=== PATIENT | female | born 1985 | race Caucasian/White ===

== ENCOUNTER 2022-10-20 08:48 | Outpatient (REF) | payer BC, SELFPAY ==
--- NOTE | ~2022-10-20 | MM_ITS ---
EXAMINATION: MM DIAGNOSTIC DIGITAL BREAST TOMOSYNTHESIS, BILATERAL US DIAGNOSTIC ULTRASOUND BREAST, LEFT CLINICAL INFORMATION: 37-year-old with 2 week palpable area lateral left breast jelly salgado size. No prior breast imaging. No known family history breast cancer. The lifetime risk of breast cancer based on the Tyrer-Cuzick Model is 13%. COMPARISON: None (current study represents initial baseline exam). TECHNIQUE: Digital breast tomosynthesis is performed in both the craniocaudal and mediolateral oblique views along with computer-aided detection (CAD). Synthesized 2D images are generated from the tomosynthesis. Ultrasound left breast is targeted to the area of clinical concern using grayscale imaging and color Doppler without and with harmonics. Patient is able to point to area of concern at time of imaging. FINDINGS: The breasts are heterogeneously dense, which may obscure small masses (ACR BI-RADS breast composition Category c). There are no significant masses, abnormal calcifications, or other abnormalities. The axilla and skin contours are unremarkable. Skin contours are smooth. The axilla are unremarkable. No mammographic correlate for patient's symptoms. Ultrasound demonstrates no cystic or solid mass, architectural abnormality, or focal duct ectasia. No skin thickening or edema tracking in soft tissue planes. Results are discussed with the patient at time of visit. MM/MM tomosynthesis diagnostic BI IMPRESSION: -No mammographic evidence of malignancy. -Unremarkable left breast ultrasound. -No imaging correlate for patient's palpable concern. ASSESSMENT: BI-RADS 1: Negative RECOMMENDATION: 1. Patient should be managed based on the clinical impression. If clinically indicated, further evaluation may be considered with surgical consult. Decision to proceed with biopsy should be based on clinical grounds and degree of clinical concern. 2. Otherwise, routine annual screening mammography. This patient's information was entered into a reminder system with a target due date for their next mammogram.
== END 2022-10-20 08:49 | disposition home or self-care (01) ==
LOC: HO.MAMMO 08:48
PROVIDERS: PCP Hospitalist; Visit Provider Nurse Practitioner Primary Care
DX: N63.25 Unspecified lump in the left breast, overlapping quadrants (principal)
CPT/HCPCS: 76642; 77062; 77066

== ENCOUNTER 2023-09-16 09:09 | Outpatient (AMB) | payer BC, SELFPAY ==
[2023-09-16 09:12] VITALS: BP 96/58; PULSE 68; RESP 13; TEMP 36.6; O2SAT 99; BMI 21.8
--- NOTE | 2023-09-16 09:12 | MHC.PC.OV ---
Vital Signs 09/16/23 09:12 Height 5 ft 4 in Weight 127 lb BMI 21.8 BP 96/58 L Blood Pressure Location Rt brachial Position Sitting Respiration 13 Pulse 68 Pulse Source Pulse Oximeter Temp 97.8 F Temp Source Oral Pulse Oximetry (%) 99 Oxygen Delivery Method Room Air Intake Visit Reasons: New patient-Requesting physical exam Intake Note: Patient is here to establish care and would like to request labs for routine bloodwork as she has not had it done in several years. 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 She notes that the last time she was evaluated by her former PCP and had blood work was over 5 years ago She reports h/o anxiety and depression with h/o psychotropic medications and psychotherapy. She notes that she has not been on psychotropic medications or had psychotherapy for the past 7 years. She notes that her symptoms are currently controlled without medications and psychotherapy. She denies acute symptoms. She notes that she is followed by [facility] in [facility]. Her last pap smear test was in 10/2022: normal [facility] Medical History (Updated 09/16/23 @ 10:17 by Earl Kenny CNP) Plantar fasciitis, bilateral Migraines Depression Anxiety Irritable bowel syndrome (IBS) Asthma Surgical History (Updated 09/16/23 @ 09:35 by Noemy Barrios CMA) History of appendectomy History of foot surgery History of nasal septoplasty Family History (Updated 09/16/23 @ 09:31 by Noemy Barrios CMA) Mother Hypertension Father Stomach cancer Alcohol abuse Maternal Grandmother Diabetes Psychiatric disorder Social History (Updated 09/16/23 @ 09:37 by Noemy Barrios CMA) Housing: House Alcohol intake: never Patient Tobacco Use Status: Never used Tobacco e-Cigarette/Vaping Use: Never Used service: No Current occupational status: employed 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 1. Little interest or pleasure in doing things: several days 2. Feeling down, depressed, or hopeless: several days 3. Trouble falling or staying asleep, or sleeping too much: several days 4. Feeling tired or having little energy: several days 5. Poor appetite or overeating: several days 6. Feeling bad about yourself - or that you are a failure or have let yourself or your family down: several days 7. Trouble concentrating on things, such as reading the newspaper or watching television: not at all 8. Moving or speaking so slowly that other people could have noticed. Or the opposite - being so fidgety or restless that you have been moving around a lot more than usual: not at all 9. Thoughts that you would be better off or of hurting yourself in some way: not at all Total score: 6 Depression Screening Interpretation: Positive Depression Screening Follow-up: Existing condition and Declines treatment Depression Screening Done: Yes 12912 - PHQ-9 Billing: Yes Source: Developed by Drs. Joe Jose, Dipika Galo, Lorenzo Vicente and colleagues, with an educational pernell from [employer]. Thrive Questionnaire Date Thrive assessed: 09/16/23 I am a: Patient What is your living situation today?: I have a steady place to live Within the past 12 months, did the food you bought not last and you didn't have the money to get more?: Never true Within the past 12 months, did you worry whether your food would run out before you got money to buy more?: Never true Do you have trouble paying for medicines?: No Do you have trouble getting transportation to medical appointments?: No Do you have trouble paying your heating and electricity bill?: No Do you have trouble taking care of your child, family member or friend?: No Do you have trouble with day-to-day activities such as bathing, preparing meals, shopping, managing finances, etc.?: No Are you currently unemployed and looking for a job?: No Are you interested in more education?: No Please select the resources that you would like help with: None Currently or been in a relationship where the following occur: no concerns reported AUDIT C Alcohol Use Questionnaire (AUDIT-C) 1. How often do you have a drink containing alcohol?: Never 3. How often do you have six or more drinks on one occasion?: Never Total Score: 0 ANAIS-7 AMB Questionnaire ANAIS-7 Date ANAIS - 7 assessed: 09/16/23 Feeling nervous, anxious, or on edge: 3 = Nearly every day Not being able to stop or control worryin = Nearly every day Worrying too much about different things: 3 = Nearly every day Trouble relaxin = More than half the days Being so restless that it is hard to sit still: 0 = Not at all Becoming easily annoyed or irritable: 3 = Nearly every day Feeling afraid as if something awful might happen: 0 = Not at all Total ANAIS-7 score (0-4 normal; 5-9 mild; 10-14 moderate; 15-21 severe): 14 Source: Developed by Drs. Joe Jose, Dipika Galo, Lorenzo Vicente and colleagues, with an educational pernell from [employer]. ANAIS-7 Assessment Billing ANAIS-7 Assessment Tool: ANAIS-7 Assessment 10874 Review of Systems Const Details: Denies chills, Denies fatigue, Denies fever(s), Denies headache(s) and Denies weakness HEENT Denies change in vision, Denies dizziness, Denies headache(s), Denies hearing loss, Denies nasal congestion, Denies sinus pain, Denies sinus pressure and Denies sore throat Card Denies chest pain, Denies lightheadedness, Denies dyspnea and Denies other (palpitations) Resp Denies cough, Denies dyspnea and Denies wheezing GI Denies abdominal pain, Denies melena, Denies hematochezia, Denies change in bowel habits, Denies dyspepsia and Denies nausea Denies hematuria and Denies dysuria Musc Denies abnormal gait, Denies myalgias, Denies arthralgias, Denies numbness and Denies tingling Skin/Breast Denies rash, Denies unusual bruising and Denies wounds Neuro Denies abnormal gait, Denies dizziness, Denies headache(s), Denies memory loss, Denies numbness, Denies Sensory deficit (Neuro), Denies tingling and Denies weakness Psych Denies anxiety, Denies depression and Denies memory loss Endo Denies cold intolerance, Denies fatigue, Denies heat intolerance, Denies polydipsia and Denies polyuria Micky/Lymph Denies easy bleeding and Denies easy bruising Aller/Immun Denies wheezing Physical exam (Primary Care) Vital Signs: Last Vital Signs Temp 97.8 F 09/16/23 09:12 Pulse 68 09/16/23 09:12 Resp 13 09/16/23 09:12 BP 96/58 L 09/16/23 09:12 Pulse Ox 99 09/16/23 09:12 Oxygen Delivery Method Room Air 09/16/23 09:12 BMI result Body Mass Index 21.8 Tobacco/Smoking Status: Tobacco use Status Tobacco use date assessed 09/16/23 09/16/23 09:22 Patient Tobacco Use Status Never used Tobacco 09/16/23 09:37 e-Cigarette/Vaping Use Never Used 09/16/23 09:37 PHQ-9: PHQ-9 Score PHQ-9: Total score 6 09/16/23 09:38 Depression Screening Interpretation: Positive Depression Screening Follow-up: Existing condition and Declines treatment Thrive Assessment: Date of Thrive Assessment Date Thrive assessed 09/16/23 09/16/23 09:24 Currently or been in a relationship where the following occur: no concerns reported Const Other: General: no acute distress, well developed, alert and awake Nutritional Appearance: well nourished Orientation/consciousness: patient oriented x3 HENMT Head: Yes normocephalic and Yes atraumatic Ears: hearing grossly normal bilaterally and TM's normal bilaterally General nose exam: Normal external nose present and Normal nares present Mouth: Normal oral and palatal mucosa present and moist mucous membranes Teeth and gingiva: dentition normal Throat: Yes oropharynx normal Eyes Pupils: Equal, round and reactive pupils present and Pupil accommodation reflex normal EOM: EOMs intact bilaterally Neck Neck: Yes normal visual inspection, Yes no lymphadenopathy and Yes trachea midline Thyroid: Thyroid normal Carotids: no bruits Lymphatic: no lymphadenopathy noted Chest Chest palpation & inspection: normal inspection of the chest Resp Effort & Inspection: normal respiratory effort Auscultation: clear to auscultation bilaterally Cardio Rate: regular rate Rhythm: regular rhythm Heart sounds: S1 normal heart sound present, S2 normal heart sound present, no gallops, no murmurs and no rubs Bruits: no abdominal aortic bruits and no carotid bruits GI Palpation (GI): No Abdominal aortic bruit present, Soft to palpation, nontender, No hepatosplenomegaly present and No Rebound tenderness present Auscultation: normal bowel sounds General: Yes no CVA tenderness Back/Spine/Pelvis Back: no CVA tenderness Cervical Spine: cervical ROM normal and No Cervical spine tenderness Thoracic/Lumbar Spine: thoraco-lumbar ROM normal, No pain with thoraco-lumbar ROM, No thoracic spinal tenderness and No lumbar spinal tenderness Skin General: warm and dry. Normal skin color. Normal skin turgor Lesions: no lesions Rashes: no rashes Trauma: no lacerations or abrasions Wounds: no wounds Nails: normal Neuro General: patient oriented x3, gait normal and CN's II-XI intact bilaterally Cranial nerves: Yes Equal, round and reactive pupils present Cognition (Neuro): normal cognition Gait exam (Neuro): Normal gait present Motor exam (neuro): 5/5 motor strength present throughout Sensory Exam: No Sensory deficit (Neuro) Deep tendon reflexes (DTR's): Right patellar reflex intensity grade: 2+ and Left patellar reflex intensity grade: 2+ Extrem General: Yes normal to inspection, No edema and No calf tenderness Psych Appearance: grossly normal Affect: normal affect Attitude: cooperative Thought process: Normal thought process present Assessment and Plan Assessment & Plan (1) Normal physical examination, routine: Code(s): Z00.00 - Encounter for general adult medical examination without abnormal findings Plan: No significant physical restrictions limitations noted Advised to get routine fasting blood work done and schedule telehealth visit in 2-3 weeks for labs review Return with symptoms or concerns Verbalized understanding and agreed with treatment plan. (2) Anxiety and depression: Code(s): F41.9 - Anxiety disorder, unspecified; F32.A - Depression, unspecified Plan: She notes that the last time she was evaluated by her former PCP and had blood work was over 5 years ago She reports h/o anxiety and depression with h/o psychotropic medications and psychotherapy. She notes that she has not been on psychotropic medications or had psychotherapy for the past 7 years. She notes that her symptoms are currently controlled without medications and psychotherapy. PHQ-9 and ANAIS-7 scores revealed mild depression and moderate anxiety respectively Declines medication or psychotherapy at this time Routine exercise encouraged She may contact the PCP if she changes her mind on medication psychotherapy Verbalized understanding and agreed with treatment plan. (3) Laboratory tests ordered as part of a complete physical exam (CPE): Code(s): Z00.00 - Encounter for general adult medical examination without abnormal findings Plan: Fasting labs ordered as part of a complete physical exam. Advised to fast for at least 10 hours before getting labs drawn. May drink water Verbalized understanding and agreed with treatment plan. Orders: Orders TSH reflex Free T4 Today Z00.00 - Encounter for general adult medical examination without abnormal findings UA CC w/rflx Micro + Cult Today Z00.00 - Encounter for general adult medical examination without abnormal findings Complete Blood Count Auto Diff Today Z00.00 - Encounter for general adult medical examination without abnormal findings Comprehensive [place]. Panel Fast Today Z00.00 - Encounter for general adult medical examination without abnormal findings Lipid Panel Today Z00.00 - Encounter for general adult medical examination without abnormal findings Coding Level of Care Code New Pt Prev Care 40-64y(80274) Diagnoses Normal physical examination, routine Z00.00 Anxiety and depression F41.9; F32.A Laboratory tests ordered as part of a complete physical exam (CPE) Z00.00 Additional Codes ANAIS-7 Assessment Billing - ANAIS-7 Assessment Tool: ANAIS-7 Assessment 26330 ([id number])
== END 2023-09-16 10:30 | disposition home or self-care (01) ==
PROVIDERS: PCP Nurse Practitioner Family; Visit Provider Nurse Practitioner Family
DX: Z00.00 Encounter for general adult medical examination without abnormal findings (principal); F41.9 Anxiety disorder, unspecified; F32.A Depression, unspecified
CPT/HCPCS: 96127; 99386

== ENCOUNTER 2023-09-16 10:19 | Outpatient (REF) | payer BC, SELFPAY ==
[2023-09-16 14:52] LABS: MANUAL DIFF FLAG NO
[2023-09-16 14:53] LABS: Appearance Urine Clear; Color Urine Yellow; Glucose Urine UA Negative (Negative); Leukocyte Esterase Urine Negative (Negative); Nitrite Urine Negative (Negative); PH 6.5 (5.0-9.0); Specific Gravity - Urine <= 1.005 (1.005-1.025); Urine Blood Negative (Negative); Urine Ketones Negative (Negative); Urine Protein Negative (Neg-Trace)
[2023-09-16 14:56] LABS: Basophils Absolute Auto 0.1 X10*3/uL (0.0-0.2); Basophils Percent Auto 1.2 % (0-2); Eosinophils Absolute Auto 0.1 X10*3/uL (0.0-0.4); Eosinophils Percent Auto 1.9 % (0-4); Hematocrit 40.4 % (37.0-47.0); Hemoglobin 13.8 g/dl (12.0-16.0); Imm Gran Abs Auto 0.01 X10*3/uL (0.00-0.03); Imm Gran Pct Auto 0.2 % (0.0-0.4); Lymphocytes Absolute Auto 1.4 X10*3/uL (1.2-4.9); Lymphocytes Percent Auto 33.3 % (20-40); Mean Corpuscular HGB Conc 34.2 g/dl (31.0-35.0); Mean Corpuscular Hemoglobin 31.1 pg (27.0-33.0); Mean Platelet Volume 9.4 fL (9.4-12.3); Monocytes Absolute Auto 0.3 X10*3/uL (0.1-1.2); Monocytes Percent Auto 7.4 % (2-11); Neutrophils Absolute Auto 2.4 x10*3/uL (2.0-8.3); Platelet Count 226 X10*3/uL (160-400); Red Blood Count 4.44 X10*6/uL (4.20-5.50); Red Cell Distribution Width 11.9 % (11.0-16.0); White Blood Count 4.2 X10*3/uL (4.8-10.8)
[2023-09-16 15:24] LABS: Alanine Aminotransferase 13 U/L (0-31); Albumin Level 4.4 g/dL (3.5-5.0); Alkaline Phosphatase 54 U/L (39-117); Anion Gap 14 (12-20); Aspartate Amino Transferase 20 U/L (5-31); Bilirubin Total 1.5 mg/dL (0.0-1.0); Blood Urea Nitrogen 14 mg/dL (9-16); Calcium 9.4 mg/dL (8.4-10.2); Carbon Dioxide 24 mmol/L (22-29); Chloride 105 mmol/L (96-108); Cholesterol 185 mg/dL (<200); Estimated Glomerular Filt Rate > 60; Glucose Fasting 84 mg/dL (60-99); HDL Cholesterol 75 mg/dL (>40); LDL Cholesterol Calculated 96 mg/dL (<100); Potassium 4.7 mmol/L (3.3-5.1); Sodium 138 mmol/L (135-145); TSH reflex Free T4 1.06 uIU/mL (0.32-4.0); Triglycerides 70 mg/dL (<150)
== END 2023-09-16 10:20 | disposition home or self-care (01) ==
LOC: HO.WFDLDS 10:19
PROVIDERS: Visit Provider Nurse Practitioner Family
DX: Z00.00 Encounter for general adult medical examination without abnormal findings (principal)
CPT/HCPCS: 36415; 80053; 80061; 81003; 84443; 85025

== ENCOUNTER 2023-10-14 16:03 | Outpatient (AMB) | payer BC, SELFPAY ==
--- NOTE | 2023-10-14 16:02 | MHC.PC.OV ---
Intake Visit Reasons: follow up labs Intake Note: Patient is ready for her telehealth appoinment to discuss her labs Street Openings Inspector Required: No Allergies No Known Allergies Allergy (Verified 10/14/23 16:04) Tobacco use date assessed: 09/16/23 HPI HPI Comments History of Present Illness Details This is a telephonic telehealth visit for review of recent blood work. Patient established care last month and had routine labs ordered. She offers no complaints and denies acute symptoms. She notes that her anxiety and depression symptoms are well controlled. [facility] Medical History (Updated 09/16/23 @ 10:17 by Earl Kenny CNP) Plantar fasciitis, bilateral Migraines Depression Anxiety Irritable bowel syndrome (IBS) Asthma Surgical History (Updated 09/16/23 @ 09:35 by Noemy Barrios [facility]) History of appendectomy History of foot surgery History of nasal septoplasty Family History (Updated 09/16/23 @ 09:31 by Noemy Barrios [facility]) Mother Hypertension Father Stomach cancer Alcohol abuse Maternal Grandmother Diabetes Psychiatric disorder Social History (Updated 09/16/23 @ 09:37 by Noemy Barrios [facility]) Housing: House Alcohol intake: never Patient Tobacco Use Status: Never used Tobacco e-Cigarette/Vaping Use: Never Used service: No Current occupational status: employed 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 Joe Jose, Dipika Galo, Lorenzo Vicente and colleagues, with an educational pernell from [employer]. Review of Systems Const Details: Const Denies chills, Denies fatigue, Denies fever(s), Denies headache(s) and Denies weakness ENT Denies dizziness and Denies headache(s) Card Denies chest pain, Denies lightheadedness, Denies dyspnea and Denies other (Palpitations) Resp Denies cough, Denies dyspnea, Denies wheezing and Denies other ( shortness of breath) GI Denies abdominal pain, Denies melena, Denies hematochezia, Denies change in bowel habits, Denies dyspepsia and Denies nausea Denies hematuria and Denies dysuria Musc Denies abnormal gait, Denies myalgias, Denies arthralgias, Denies numbness and Denies tingling Skin/Breast Denies rash, Denies unusual bruising and Denies wounds Neuro Denies abnormal gait, Denies dizziness, Denies headache(s), Denies memory loss, Denies numbness, Denies Sensory deficit (Neuro), Denies tingling and Denies weakness Psych Denies anxiety, Denies depression, Denies memory loss Endo Denies cold intolerance, Denies fatigue, Denies heat intolerance, Denies polydipsia and Denies polyuria Aller/Immun Denies wheezing Physical exam (Primary Care) Tobacco/Smoking Status: Tobacco use Status Tobacco use date assessed 09/16/23 10/14/23 16:04 Patient Tobacco Use Status Never used Tobacco 10/14/23 16:04 e-Cigarette/Vaping Use Never Used 10/14/23 16:04 Thrive Assessment: Date of Thrive Assessment Date Thrive assessed 09/16/23 10/14/23 16:04 Const Other: Telemedicine visit. No physical exam Telehealth Telehealth Location of provider rendering services: practice address Location of patient: address on file Patient Identification confirmed using: Name, : Yes Telehealth method: voice only Patient verbally consented to treatment: Yes Patient verbally consented to billing insurance company: Yes Patient informed of any privacy concerns related to visit: Yes Assessment and Plan Assessment & Plan (1) Laboratory tests ordered as part of a complete physical exam (CPE): Code(s): Z00.00 - Encounter for general adult medical examination without abnormal findings Plan: Recent lab results reviewed with the patient Unremarkable lab findings Advised to schedule her next physical for a year from last month Return sooner with symptoms or concerns Verbalized understanding and agreed with the plan. (2) Anxiety and depression: Code(s): F41.9 - Anxiety disorder, unspecified; F32.A - Depression, unspecified Plan: Reports controlled anxiety and depression symptoms Routine exercise encouraged She may contact the PCP if she changes her mind on medication psychotherapy Verbalized understanding and agreed with treatment plan. Coding Level of Care Code Tele Est Pt Level 2 (62975) Diagnoses Laboratory tests ordered as part of a complete physical exam (CPE) Z00.00 Anxiety and depression F41.9; F32.A Time Spent (min) 10
== END 2023-10-14 16:45 ==
PROVIDERS: PCP Nurse Practitioner Family; Visit Provider Nurse Practitioner Family
DX: F41.9 Anxiety disorder, unspecified (principal); F32.A Depression, unspecified
CPT/HCPCS: 99441

== ENCOUNTER 2024-05-12 08:41 | Outpatient (REF) | payer BC, SELFPAY ==
--- NOTE | ~2024-05-12 | MM_ITS ---
EXAMINATION: MM SCREENING DIGITAL BREAST TOMOSYNTHESIS, BILATERAL CLINICAL INFORMATION: Screening. Asymptomatic. The patient reports no family history of breast cancer. COMPARISON: Mammography: This study is compared with prior exams dating back to 2021. TECHNIQUE: Digital breast tomosynthesis is performed in both the craniocaudal and mediolateral oblique views along with computer-aided detection (CAD). Synthesized 2D images are generated from the tomosynthesis. FINDINGS: The breasts are heterogeneously dense, which may obscure small masses (ACR BI-RADS breast composition Category c). In the deep third of the upper outer quadrant of the left breast, in the area of the axillary tail, there is an asymmetry which warrants additional mammographic and targeted sonographic imaging. There are coarse areas of increased density in normal-sized left axillary lymph nodes. Ultrasound of the left axilla should be performed. Inquiry should be made as to if the patient has any tattoos of the upper half of the body, particularly on the left side. In the right breast, there are no significant masses, abnormal calcifications, or other abnormalities. MM/MM tomosynthesis screening BI IMPRESSION: Focal asymmetry of the left breast warrants additional mammographic and targeted sonographic imaging. Left axillary lymph node densities warrant inquiry as to the patient has a history of tattoos. Ultrasound of the left axilla should also be performed. ASSESSMENT: BI-RADS BI-RADS 0 - Incomplete: Needs additional Imaging. RECOMMENDATION: 1. Additional views of the left. 2. Targeted ultrasound of the left breast. 3. Radiology department staff will contact the patient for additional imaging. Additional Imaging required This examination should not preclude the clinical evaluation of a suspicious palpable abnormality. This patient's information was entered into a reminder system with a target due date for their next mammogram.
== END 2024-05-12 08:42 | disposition home or self-care (01) ==
LOC: HO.MAMMO 08:41
PROVIDERS: PCP Nurse Practitioner Family; Visit Provider Nurse Practitioner Family
DX: Z12.31 Encounter for screening mammogram for malignant neoplasm of breast (principal)
CPT/HCPCS: 77063; 77067

== ENCOUNTER → 2024-05-12 08:45 | Outpatient (BNV) | payer BC, SELFPAY | PROVIDERS: PCP Nurse Practitioner Family; Visit Provider Radiology Diagnostic Radiology | DX: Z12.31 Encounter for screening mammogram for malignant neoplasm of breast (principal) | CPT/HCPCS: 77063; 77067 ==

== ENCOUNTER 2024-06-13 13:49 | Outpatient (REF) | payer BC, SELFPAY ==
--- NOTE | ~2024-06-13 | US_ITS ---
EXAMINATION: MM DIAGNOSTIC DIGITAL BREAST TOMOSYNTHESIS, LEFT US BREAST LIMITED, LEFT MAMMOGRAPHY: CLINICAL INFORMATION: Follow-up for focal asymmetry left breast far upper outer quadrant seen on screening examination 05/12/2024. COMPARISON: Mammography: 05/12/2024, 10/20/2022. ULTRASOUND: Left, 10/20/2022. TECHNIQUE: Digital breast tomosynthesis is performed in the following views: 3-D left spot compression lateral exaggerated CC x2. This was followed by targeted left breast ultrasound. FINDINGS: The breasts are heterogeneously dense, which may obscure small masses (ACR BI-RADS breast composition Category c). Diagnostic views demonstrate persistence of rounded focal asymmetry in the far upper outer left breast, posterior one third. There is a mixture of fat density and parenchymal density, making this abnormality most likely representing a prominent island of dense fibroglandular tissue. Tattoo pigment is present in the left axillary nodes. The patient has extensive bilateral arm tattoos. These are benign findings. ULTRASOUND: CLINICAL INFORMATION: Focal asymmetry upper outer left breast far posterior one third. COMPARISON: 10/20/2022. TECHNIQUE: Targeted sonographic evaluation was performed using a high frequency linear transducer. Attention to the left breast upper outer quadrant was given. Selected left axillary images were also obtained. Selected archived documentation. FINDINGS: LEFT BREAST: -There is dense fibroglandular tissue present. The abnormality in the axillary tail of the left breast appears to represent a second prominent island of fibroglandular tissue. Normal left axillary lymph nodes are evident without pathologic abnormal lymph nodes. It should be noted tatoo pigment is not detectable on ultrasound. There are no suspicious masses, cystic abnormalities, abnormal regions of shadowing, or architectural distortion in the upper outer left breast. US/US breast LT limited mamm only IMPRESSION: There are no findings suspicious for malignancy in the left breast. Benign findings left axillary tail as discussed. These findings are unchanged from 202. No abnormal lymphadenopathy in the left axilla, where there are are tattoo pigments within a left axillary lymph node. Recommend the patient return to routine annual screening to include both breasts. OVERALL ASSESSMENT: Mammography: BI-RADS 2 - Benign Findings Ultrasound: BI-RADS 2 - Benign Findings RECOMMENDATION: 1 year F/U This patient's information was entered into a reminder system with a target due date for their next mammogram.
== END 2024-06-13 13:50 | disposition home or self-care (01) ==
LOC: HO.MAMMO 13:49
PROVIDERS: PCP Nurse Practitioner Family; Visit Provider Nurse Practitioner Family
DX: N64.89 Other specified disorders of breast (principal)
CPT/HCPCS: 76642; 77061; 77065

== ENCOUNTER → 2024-06-13 14:00 | Outpatient (BNV) | payer BC, SELFPAY | PROVIDERS: PCP Nurse Practitioner Family; Visit Provider Radiology Diagnostic Radiology | DX: R92.8 Other abnormal and inconclusive findings on diagnostic imaging of breast (principal) | CPT/HCPCS: 76642; 77061; 77065 ==

== ENCOUNTER 2025-05-18 08:41 | Outpatient (REF) | payer BC, SELFPAY ==
--- NOTE | ~2025-05-18 | MM_ITS ---
EXAMINATION: MM SCREENING DIGITAL BREAST TOMOSYNTHESIS, BILATERAL CLINICAL INFORMATION: Screening. Asymptomatic. COMPARISON: Mammography: Comparison is made with available priors TECHNIQUE: Digital breast mammography with tomosynthesis is performed in both the craniocaudal and mediolateral oblique views along with computer-aided detection (CAD). FINDINGS: The breasts are extremely dense, which lowers the sensitivity of mammography (ACR BI-RADS breast composition Category d). Left: Asymmetry superior breast middle and posterior depth on MLO view. No suspicious calcifications or other abnormal findings. Right: There are no significant masses, abnormal calcifications, or other abnormalities. MM/MM tomosynthesis screening BI IMPRESSION: Additional imaging is recommended ASSESSMENT: BI-RADS BI-RADS 0 - Incomplete: Needs additional Imaging. RECOMMENDATION: 1. Additional views of the left breast. 2. Targeted ultrasound if warranted after review of the additional views. 3. Radiology department staff will contact the patient for additional imaging. Additional Imaging required This examination should not preclude the clinical evaluation of a suspicious palpable abnormality. This patient's information was entered into a reminder system with a target due date for their next mammogram. Electronically signed by: Aislinn Schwab DO 05/23/2025 02:18 PM EDT
--- OUTSIDE RECORDS SUMMARY | 2025-05-18 09:04 | XMS_ITS ---
Author Name [facility] Organization Unknown History of Medication Use Medication Directions Dispensed Refills Start Date End Date Stat us amoxicillin 500 mg capsule 07/22/2018 completed cephalexin 500 mg capsule 07/22/2018 completed metronidazole 500 mg tablet 07/22/2018 completed topiramate 100 mg tablet 018 completed Problems Problem Status Onset Date Problem Type Date of Resoluti on Source Herpes simplex active 2010-09-10 ProblemAct [facility] Anxiety state active 2012-02-19 ProblemAct [facility] Dysmenorrhea active 2012-02-19 ProblemAct [facility] Encounters Encounter Type Encounter Reason Primary Diagnosis Location Date Ambulatory 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
== END 2025-05-18 08:42 | disposition home or self-care (01) ==
LOC: HO.MAMMO 08:41
PROVIDERS: PCP Nurse Practitioner Family
DX: Z12.31 Encounter for screening mammogram for malignant neoplasm of breast (principal)
CPT/HCPCS: 77063; 77067

== ENCOUNTER → 2025-05-18 08:45 | Outpatient (BNV) | payer BC, SELFPAY | PROVIDERS: PCP Nurse Practitioner Family; Visit Provider Internal Medicine | DX: Z12.31 Encounter for screening mammogram for malignant neoplasm of breast (principal) | CPT/HCPCS: 77063; 77067 ==

== ENCOUNTER 2025-07-07 09:50 | Outpatient (REF) | payer BC, SELFPAY ==
--- NOTE | ~2025-07-07 | MM_ITS ---
EXAMINATION: MM DIAGNOSTIC DIGITAL BREAST TOMOSYNTHESIS, LEFT CLINICAL INFORMATION: Callback from screening for left breast asymmetry on the MLO view. COMPARISON: June 13, 2024; May 12, 2024 and October 20, 2022. TECHNIQUE: Digital breast tomosynthesis is performed in full field ML 90 degrees view along with computer-aided detection (CAD). Synthesized 2D images are generated from the tomosynthesis. Spot compression tomosynthesis images were also obtained. FINDINGS: BREAST COMPOSITION: There are scattered areas of fibroglandular density (ACR BI-RADS breast composition Category b). LEFT BREAST: Previously suggested asymmetry in the upper breast is pliable on today's images; local parenchyma is similar to prior studies as far back as 2021, and likely represents overlapping fibroglandular breast tissue. MM/MM tomosynthesis added views L IMPRESSION: LEFT BREAST: Negative, no mammographic evidence of malignancy. Normal interval follow-up is recommended in 12 months. ASSESSMENT: BI-RADS 1 - Negative RECOMMENDATION: 1 year F/U Results were provided to the patient at time of visit by the technologist. This patient's information was entered into a reminder system with a target due date for their next mammogram. Electronically signed by: Cornelio Belcher MD 07/07/2025 10:50 AM EDT
--- OUTSIDE RECORDS SUMMARY | 2025-07-07 09:54 | XMS_ITS ---
Author Name [facility] Organization Unknown History of Medication Use Medication Directions Dispensed Refills Start Date End Date Stat us amoxicillin 500 mg capsule 07/22/2018 completed cephalexin 500 mg capsule 07/22/2018 completed metronidazole 500 mg tablet 07/22/2018 completed topiramate 100 mg tablet 018 completed Allergies Allergen Reaction Severity Comment Documented Date Source Statu s NO KNOWN ALLERGY (SITUATION) 08/25/2014 [facility] active Problems Problem Status Onset Date Problem Type Date of Resoluti on Source Herpes simplex active 2010-09-10 ProblemAct [facility] Anxiety state active 2012-02-19 ProblemAct [facility] Dysmenorrhea active 2012-02-19 ProblemAct [facility] Encounters Encounter Type Encounter Reason Primary Diagnosis Location Date Ambulatory 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
--- OUTSIDE RECORDS SUMMARY | 2025-07-07 09:55 | XMS_ITS | Clinical Summary ---
Author Organization [facility] Address [address] [place] [address] Care Team Providers Care Leveler Name Role Phone Unavailable Primary Care Provider Unavailabl e Social History Tobacco Use Types Packs/Day Years Used Date Smoking Tobacco: Never Assessed Comments Unknown Sex and Gender Information Value Date Recorded Sex Assigned at Not on file Legal Sex Female 6:58 PM EST Gender Identity Not on file Sexual Orientation Not on file Plan of Treatment Health Maintenance Due Date Last Done Comments Hepatitis C Virus Screening 1983 HIV Screening 1996 DTaP/Tdap/Td Vaccines (1 - Tdap) 2002 Hepatitis B Vaccines (1 of 3 - 19+ 3-dose series) 2002 COVID-19 Vaccine (2023-2 5 season) 2024 HPV Vaccines Aged Out No longer eligi ble based on patient's age to complete this topic Pneumococcal Vaccine: Pediat mary (0-5 Years) and At-Risk Patients (6 to 49 Years) Aged Out No longer eligible b ased on patient's age to complete this topic
--- OUTSIDE RECORDS SUMMARY | 2025-07-07 09:55 | XMS_ITS | Clinical Summary ---
Author Organization [facility] Address [address] [place] [address] Care Team Providers Care Retail Support Associate Name Role Phone Nicki Butler APRN Primary Care Provider [phone] Allergies Active Allergy Reactions Criticality Noted Date Comments Nuts Other (See Comments) 07/25/2015 Hazelnuts & pecans-throat itches Medications Medication Sig Dispensed Refills Start Date End Date Status topiramate (TOPAMAX) 100 MG tablet every evening. 0 07/11/2015 Active ethynodiol-ethinyl estradiol (KELNOR 1/35) 1-35 MG-MCG per tablet Take 1 tablet by mouth every evening. 0 Active Multiple Vitamins-Minerals (THERA M PLUS) TABS tablet Take 1 tablet by mouth daily. 0 Active oxyCODONE-acetaminop hen (PERCOCET) 5-325 MG per tablet Take 1 tablet by mouth every 4 (four) hours as needed for pain. 30 tablet 0 07/25/2015 Active cephalexin (KEFLEX) 500 MG capsule Take 1 capsule (500 mg total) by mouth every 8 (eight) hours. 30 capsule 0 07/25/2015 Active Social History Tobacco Use Types Packs/Day Years Used Date Smoking Tobacco: Never Alcohol Use Standard Drinks/Week Comments No 0 (1 standard drink = 0.6 oz pur e alcohol) Sex and Gender Information Value Date Recorded Sex Assigned at Not on file Gender Identity Not on file Sexual Orientation Not on file Last Filed Vital Signs Vital Sign Reading Time Taken Comments Blood Pressure 110/96 07/25/2015 3:30 PM EDT Pulse 62 07/25/2015 3:30 PM EDT Temperature 37.3 C (99.2 F) 07/25/2015 3:29 PM EDT Respiratory Rate 16 07/25/2015 3:30 PM EDT Oxygen Saturation 100% 07/25/2015 3:30 PM EDT Inhaled Oxygen Concentration - - Weight 49.6 kg (109 lb 4 oz) 07/23/2015 2:54 PM EDT Height 162.6 cm (5' 4 ) 07/23/2015 2:54 PM EDT Body Mass Index 18.75 07/23/2015 2:54 PM EDT Plan of Treatment Not on file Care Teams Retail Support Associate Relationship Specialty Start Date End Date Nicki Butler APRN PCP - General Internal Medicine 07/23/15
== END 2025-07-07 09:51 | disposition home or self-care (01) ==
LOC: HO.MAMMO 09:50
PROVIDERS: PCP Nurse Practitioner Family; Visit Provider Nurse Practitioner Family
DX: Z12.31 Encounter for screening mammogram for malignant neoplasm of breast (principal); N64.89 Other specified disorders of breast
CPT/HCPCS: 77061; 77065

== ENCOUNTER → 2025-07-07 10:00 | Outpatient (BNV) | payer BC, SELFPAY | PROVIDERS: PCP Nurse Practitioner Family; Visit Provider Radiology Body Imaging | DX: R92.8 Other abnormal and inconclusive findings on diagnostic imaging of breast (principal) | CPT/HCPCS: 77061; 77065 ==